=== PATIENT | female | born 1965 | race Two or more races ===

== ENCOUNTER 2023-06-20 07:29 | Outpatient (CLI) | payer OTHER | END 2023-06-20 07:44 | disposition home or self-care (01) | LOC: NUCLEAR 07:29 | PROVIDERS: ATTEND Internal Medicine | DX: I10 Essential (primary) hypertension (principal); R07.9 Chest pain, unspecified; R06.00 Dyspnea, unspecified ==

== ENCOUNTER 2023-06-20 10:36 | Outpatient (CLI) | payer OTHER | END 2023-06-20 10:37 | disposition home or self-care (01) | LOC: RAD 10:36 | PROVIDERS: ATTEND Internal Medicine | DX: R06.00 Dyspnea, unspecified (principal) ==